=== PATIENT | male | born 1940 | race Caucasian/White ===

== ENCOUNTER → 2016-03-04 | Outpatient (CLI) | payer MEDICARE, OTHER ==
[2016-03-05 09:10] LABS: PROSTATE SPECIFIC ANTIGEN 7.2 ng/mL (0.0-4.0); PSA % FREE 27.4 % (.); PSA FREE 1.97 ng/mL
== END ==
LOC: OD 12:09
PROVIDERS: ATTEND Urology
DX: R97.20 Elevated prostate specific antigen [PSA] (principal)
CPT/HCPCS: 36415; 84154